=== PATIENT | male | born 1960 | race Caucasian/White ===

== ENCOUNTER 2019-03-03 18:15 | Emergency (ER) | payer OTHER, SELFPAY ==
[2019-03-03 18:19] VITALS: BP 165/85; PULSE 83; RESP 20; TEMP 37.3; O2SAT 98; BMI 24.3
--- NOTE | 2019-03-03 18:25 | DI.RAD.S_ITS ---
PROCEDURE: XR CHEST 2V INDICATIONS: l chest pain TECHNIQUE: 2 views of the chest were acquired. COMPARISON: None. FINDINGS: Surgical changes and devices: Cervical fusion hardware is present. Lungs and pleura: Lungs are clear. No pleural effusions or pneumothorax. Mediastinum: Mediastinal contours are normal. Heart size is normal. Bones and chest wall: No suspicious bony abnormalities. Soft tissues appear unremarkable. IMPRESSION: No acute process. Dictated by: Morales Richter M.D. on 03/03/2019 at 18:47 Approved by: Morales Richter M.D. on 03/03/2019 at 18:48
--- NOTE | 2019-03-03 18:52 | ED.CHESTPAIN ---
HPI - Chest Pain <Maria C Chan PA-C - Last Filed: 03/03/19 22:23> General Chief Complaint: Chest Pain Stated Complaint: pain in left side of chest Time Seen by Provider: 03/03/19 18:51 Source: patient Mode of arrival: ambulatory Limitations: no limitations History of Present Illness HPI narrative: This 58-year-old male comes in due to left-sided chest pain. He states that he has actually had pain for the last 2 and half months, initially started when he was playing with his dogs and ran into a clothes line with the left side of his chest, then about a month ago he actually tripped and fell on his porch same area of his chest. He states his ribs were sore and he had a bump, thought maybe he broke a rib. He states he has had soreness with deep breath since then but not having difficulty breathing or wheeze. He also had some cough and flu symptoms last month that he thinks exacerbated things. That has resolved. Today he states that he had been polishing some tires and noted that he had a little bit more sharp pain. He describes this as waxing and waning about every 6 minutes. He states that when he was driving he noted a sharp pop in that side of his ribs about 20 minutes ago, and so came here. He states that pain is better now. He states he took some [place] and Flexeril earlier for the pain and that seemed to help somewhat. He states he does not have any radiating pain but does have some chronic shoulder pain and popping. He also has a history of spurs and fusion in his neck. He denies feeling lightheaded or nauseated. Denies palpitations. Denies dyspnea as noted above. He denies any pain or swelling in his extremities. he states he does have some chronic thoracic pain which is unchanged. He denies smoking history and any other cardiac risk factors aside from high blood pressure Related Data Allergies Allergy/AdvReac Type Severity Reaction Status Date / Time fexofenadine AdvReac Severe MAKES ME Unverified 02/25/18 11:51 MEAN Review of Systems <Maria C Chan PA-C - Last Filed: 03/03/19 22:23> Review of Systems ROS Unobtainable: All systems reviewed & are unremarkable except as noted in HPI and below PFSH <Maria C Chan PA-C - Last Filed: 03/03/19 22:23> Medical History (Updated 03/03/19 @ 21:06 by Maria C Chan PA-C) Chronic thoracic back pain (Chronic) Generalized anxiety disorder with panic attacks (Chronic) HTN (hypertension) (Chronic) Surgical History (Updated 03/03/19 @ 19:15 by Maria C Chan PA-C) Status post cervical spinal fusion (Resolved) Status post knee surgery (Resolved) Social History (Updated 03/03/19 @ 19:15 by Maria C Chan PA-C) Smoking Status: Never smoker Social History (Updated 03/03/19 @ 19:15 by Maria C Chan PA-C) Smoking Status: Never smoker Exam <Maria C Chan PA-C - Last Filed: 03/03/19 22:23> Narrative Exam Narrative: GENERAL APPEARANCE: Patient sitting comfortably, in no distress. HEENT: PERRL, EOMI, normal oropharynx NECK/THYROID: Neck supple, no JVD. LUNGS: Clear to auscultation bilaterally. CHEST: No tenderness over the sternum, mild rib tenderness and slight deformity over the left mid anterior ribs at the mid clavicular line. He indicates that is the area of tenderness HEART: Regular rate and rhythm without murmur, normal S1, S2, no S3 or S4. ABDOMEN: Soft, NT, ND, + BS x 4 quadrants EXTREMITIES: No edema. No calf tenderness NEUROLOGIC: Alert and oriented, normal speech, and coordination. DERM: No exanthem MS: Full AROM L. shoulder with some crepitus, NT Initial Vital Signs Initial Vital Signs: Vital Signs Temperature 99.2 F 03/03/19 18:19 Pulse Rate 83 03/03/19 18:19 Respiratory Rate 20 03/03/19 18:19 Blood Pressure 165/85 H 03/03/19 18:19 Pulse Oximetry 98 03/03/19 18:19 <Lawrence Steel DO - Last Filed: 03/03/19 23:22> Initial Vital Signs Initial Vital Signs: Vital Signs Temperature 99.2 F 03/03/19 18:19 Pulse Rate 83 03/03/19 18:19 Respiratory Rate 20 03/03/19 18:19 Blood Pressure 165/85 H 03/03/19 18:19 Pulse Oximetry 98 0417/19 18:19 Course <Maria C Chan PA-C - Last Filed: 03/03/19 22:23> Additional Information: Patient pain is most consistent with musculoskeletal pain due to recurrent injury and then repetitive left shoulder and upper extremity motion prior to onset of pain today. No acute findings on lab work imaging studies or EKG. He is feeling markedly improved following Toradol and also a dose of Flexeril, which he takes at home. He already has an appointment with his PCP on Friday for this. He will continue Naprosyn, which he already has at home he, for pain as well as Flexeril as needed in the interim and return if any acutely worsening symptoms Orders Ordered: ED Orders 03/03/19 18:23 EKG-12 Lead Stat 03/03/19 18:25 CXR [XR chest 2V] Stat 03/03/19 19:02 XR ribs RT min 3V w CXR1V Stat XR shoulder LT min 2V Stat 03/03/19 19:28 Complete Blood Count AUTO DIFF Stat Comprehensive Metabolic Panel Stat Troponin & CK Cardiac Panel Stat Discontinued Medications Cyclobenzaprine HCl (Flexeril) 10 mg PO NOW ONE Stop: 03/03/19 20:18 Last Admin: 03/03/19 20:19 Dose: 10 mg Ketorolac Tromethamine (Toradol) 30 mg IV NOW ONE Stop: 03/03/19 20:12 Last Admin: 03/03/19 20:18 Dose: Not Given Ketorolac Tromethamine (Toradol) 60 mg IM NOW ONE Stop: 03/03/19 20:14 Last Admin: 03/03/19 20:17 Dose: 60 mg Vital Signs - 8 hr 03/03/19 18:19 03/03/19 19:30 03/03/19 20:30 Temperature 99.2 F Pulse Rate 83 72 70 Respiratory Rate 20 18 16 Blood Pressure 165/85 H Blood Pressure [Right Arm] 137/74 127/78 Pulse Oximetry 98 98 97 03/03/19 21:00 Temperature Pulse Rate 69 Respiratory Rate 14 Blood Pressure Blood Pressure [Right Arm] 135/76 Pulse Oximetry 97 <Lawrence Steel DO - Last Filed: 03/03/19 23:22> Orders Ordered: ED Orders 03/03/19 18:23 EKG-12 Lead Stat 03/03/19 18:25 CXR [XR chest 2V] Stat 03/03/19 19:02 XR ribs RT min 3V w CXR1V Stat XR shoulder LT min 2V Stat 03/03/19 19:28 Complete Blood Count AUTO DIFF Stat Comprehensive Metabolic Panel Stat Troponin & CK Cardiac Panel Stat Discontinued Medications Cyclobenzaprine HCl (Flexeril) 10 mg PO NOW ONE Stop: 03/03/19 20:18 Last Admin: 03/03/19 20:19 Dose: 10 mg Ketorolac Tromethamine (Toradol) 30 mg IV NOW ONE Stop: 03/03/19 20:12 Last Admin: 03/03/19 20:18 Dose: Not Given Ketorolac Tromethamine (Toradol) 60 mg IM NOW ONE Stop: 03/03/19 20:14 Last Admin: 03/03/19 20:17 Dose: 60 mg Vital Signs - 8 hr 03/03/19 18:19 03/03/19 19:30 03/03/19 20:30 Temperature 99.2 F Pulse Rate 83 72 70 Respiratory Rate 20 18 16 Blood Pressure 165/85 H Blood Pressure [Right Arm] 137/74 127/78 Pulse Oximetry 98 98 97 03/03/19 21:00 Temperature Pulse Rate 69 Respiratory Rate 14 Blood Pressure Blood Pressure [Right Arm] 135/76 Pulse Oximetry 97 MDM - Chest Pain <Maria C Chan PA-C - Last Filed: 03/03/19 22:23> Lab Data Result diagrams: 03/03/19 19:28 03/03/19 19:28 Lab Results 03/03/19 03/03/19 Range/Units 19:28 19:28 WBC 6.5 (4.5-11.0) X10^3/uL RBC 4.61 (4.5-5.9) X10^6/uL Hgb 13.3 L (13.5-17.5) g/dL Hct 40.7 L (41-53) % MCV 88.2 (80-100) fL MCH 28.8 (26-34) PG MCHC 32.6 (30-36) % RDW 14.9 H (11.6-14.8) % Plt Count 267 (150-400) X10^3/uL Neut % (Auto) 59.1 (50-75) % Lymph % (Auto) 31.0 (25-40) % Patrick % (Auto) 7.1 (3-14) % Eos % (Auto) 2.4 (2-4) % Baso % (Auto) 0.4 (0-2) % Neut # (Auto) 3900 (0175-5186) /uL Lymph # (Auto) 2000 (5749-1989) /uL Patrick # (Auto) 500 (0-900) /uL Eos # (Auto) 200 (0-450) /uL Baso # (Auto) 0 (0-100) /uL Sodium 137 (137-145) mmol/L Potassium 3.9 (3.4-5.1) mmol/L Chloride 102 (98-107) mmol/L Carbon Dioxide 26 (22-32) mmol/L BUN 17 (9-20) mg/dL Creatinine 0.70 (0.66-1.25) mg/dL Estimated GFR > 60.0 (>60) mL/min BUN/Creatinine Ratio 24.3 H (6-22) Glucose 95 (70-100) mg/dL Calcium 9.4 (8.4-10.2) mg/dL Total Bilirubin 0.4 (0.2-1.3) mg/dL AST 31 (17-59) IU/L ALT 27 (21-72) IU/L Alkaline Phosphatase 72 (38-126) U/L Total Creatine Kinase 132 (55-170) U/L CK-MB (CK-2) 1.02 (<2.37) ng/mL CK-MB (CK-2) Rel Index 0.8 L (1.5-5.0) % Troponin I < 0.012 (0.01-0.034) ng/mL Total Protein 7.9 (6.3-8.2) g/dL Albumin 4.6 (3.5-5.0) g/dL Globulin 3.3 (1.7-4.1) g/dL Albumin/Globulin Ratio 1.4 (1.0-2.8) Imaging Data shoulder: Radiologist's impression: Obie Sims M [address] [address] XRay Report Signed Patient: Obei Sims PMR#: [id number] : 1960cct:[id number] Age/Sex: 58 / MDate of Service: 03/03/19 Loc: ED Accession Number: [id number] Procedure: XR shoulder LT min 2V Ordering Provider: Maria C Chan P.A-C PROCEDURE: XR SHOULDER LT MIN 2V INDICATIONS: pain, popping, ? old injury TECHNIQUE: 3 views of the shoulder were acquired. COMPARISON: [facility], , SHOULDER MINIMUM 2 VIEW LEFT, 05/06/2013, 12:20. FINDINGS: Bones: No fractures or dislocations. No suspicious bony lesions. Visualized ribs appear intact. Periarticular osteophyte formation at the acromioclavicular joint and glenohumeral joints. Soft tissues: No suspicious soft tissue calcifications. IMPRESSION: Osteoarthritis. No acute fracture. No osseous lesion. If clinical suspicion and/or symptoms persist, further assessment with repeat plainfilms, or advanced imaging (e.g., CT, MRI, or bone scan) may be helpful for further assessment. Dictated by: Morales Richter M.D. on 03/03/2019 at 19:20 Approved by: Morales Richter M.D. on 03/03/2019 at 19:20 Chest x-ray: Radiologist's impression: [place] [address] XRay Report Signed Patient: Obie Sims PMR#: [id number] : 1At:[id number] Age/Sex: 58 / MDate of Service: 03/03/19 Loc: ED Accession Number: [id number] Procedure: XR ribs RT min 3V w CXR1V Ordering Provider: Maria C Chan P.A-C PROCEDURE: XR RIBS RT MIN 3V W CXR 1V INDICATIONS: L. anterior ribs, lateral chest (1 view already done) TECHNIQUE: 3 views of the left ribs were acquired, along with a single view chest. COMPARISON: [facility], , XR CHEST 2V, 03/03/2019, 18:38. FINDINGS: Surgical changes and devices: Cervical fusion hardware. Bones and chest wall: No fractures or dislocations. No suspicious bony lesions. Overlying soft tissues appear unremarkable. Lungs and pleura: No pleural effusions or pneumothorax. Lungs appear clear. Mediastinum: Mediastinal contours appear normal. Heart size is normal. IMPRESSION: No acute process. No acute fracture. No osseous lesion. If clinical suspicion and/or symptoms persist, further assessment with repeat plainfilms, or advanced imaging (e.g., CT or bone scan) may be helpful for further assessment. Dictated by: Morales Richter M.D. on 03/03/2019 at 19:21 Approved by: Morales Richter M.D. on 03/03/2019 at 19:21 ECG Data Attestation: I personally reviewed and interpreted this ECG as follows: (Normal sinus rhythm, rate 80, normal axis, nonspecific ST changes) <Lawrence Steel DO - Last Filed: 03/03/19 23:22> Lab Data Lab Results 03/03/19 03/03/19 Range/Units 19:28 19:28 WBC 6.5 (4.5-11.0) X10^3/uL RBC 4.61 (4.5-5.9) X10^6/uL Hgb 13.3 L (13.5-17.5) g/dL Hct 40.7 L (41-53) % MCV 88.2 (80-100) fL MCH 28.8 (26-34) PG MCHC 32.6 (30-36) % RDW 14.9 H (11.6-14.8) % Plt Count 267 (150-400) X10^3/uL Neut % (Auto) 59.1 (50-75) % Lymph % (Auto) 31.0 (25-40) % Patrick % (Auto) 7.1 (3-14) % Eos % (Auto) 2.4 (2-4) % Baso % (Auto) 0.4 (0-2) % Neut # (Auto) 3900 (2090-9163) /uL Lymph # (Auto) 2000 (8261-7993) /uL Patrick # (Auto) 500 (0-900) /uL Eos # (Auto) 200 (0-450) /uL Baso # (Auto) 0 (0-100) /uL Sodium 137 (137-145) mmol/L Potassium 3.9 (3.4-5.1) mmol/L Chloride 102 (98-107) mmol/L Carbon Dioxide 26 (22-32) mmol/L BUN 17 (9-20) mg/dL Creatinine 0.70 (0.66-1.25) mg/dL Estimated GFR > 60.0 (>60) mL/min BUN/Creatinine Ratio 24.3 H (6-22) Glucose 95 (70-100) mg/dL Calcium 9.4 (8.4-10.2) mg/dL Total Bilirubin 0.4 (0.2-1.3) mg/dL AST 31 (17-59) IU/L ALT 27 (21-72) IU/L Alkaline Phosphatase 72 (38-126) U/L Total Creatine Kinase 132 (55-170) U/L CK-MB (CK-2) 1.02 (<2.37) ng/mL CK-MB (CK-2) Rel Index 0.8 L (1.5-5.0) % Troponin I < 0.012 (0.01-0.034) ng/mL Total Protein 7.9 (6.3-8.2) g/dL Albumin 4.6 (3.5-5.0) g/dL Globulin 3.3 (1.7-4.1) g/dL Albumin/Globulin Ratio 1.4 (1.0-2.8) Discharge Plan Departure Patient Disposition: Home Clinical Impression: Rib pain on left side, Atypical chest pain Discharge Date/Time: 03/03/19 21:11 Interventions: ED Discharge Assessment Last Done: 03/03/19 21:10 Instructions: DI for Atypical Chest Pain, DI for Rib Contusion Activity Restrictions/Additional Instructions: Please take the Aleve you have at home, 2 tablets every 12 hours to help with pain. You can continue your cyclobenzaprine as needed, but remember that can make you sleepy. Please avoid twisting and a lot of upper body work to keep the stress off the rib and shoulder areas. Follow up with your PCP on Friday is you have planned. Please return sooner if you have acutely worsening symptoms as we talked about Referrals: Nathaniel Hinojosa MD [Primary Care Provider] - <Lawrence Steel DO - Last Filed: 03/03/19 23:22> Cosign ED Attending Edwige Attestation: I was available for consultation during this patient's emergency department encounter
--- NOTE | 2019-03-03 19:02 | DI.RAD.S_ITS ---
PROCEDURE: XR RIBS RT MIN 3V W CXR 1V INDICATIONS: L. anterior ribs, lateral chest (1 view already done) TECHNIQUE: 3 views of the left ribs were acquired, along with a single view chest. COMPARISON: [facility], , XR CHEST 2V, 03/03/2019, 18:38. FINDINGS: Surgical changes and devices: Cervical fusion hardware. Bones and chest wall: No fractures or dislocations. No suspicious bony lesions. Overlying soft tissues appear unremarkable. Lungs and pleura: No pleural effusions or pneumothorax. Lungs appear clear. Mediastinum: Mediastinal contours appear normal. Heart size is normal. IMPRESSION: No acute process. No acute fracture. No osseous lesion. If clinical suspicion and/or symptoms persist, further assessment with repeat plainfilms, or advanced imaging (e.g., CT or bone scan) may be helpful for further assessment. Dictated by: Morales Richter M.D. on 03/03/2019 at 19:21 Approved by: Morales Richter M.D. on 03/03/2019 at 19:21
--- NOTE | 2019-03-03 19:02 | DI.RAD.S_ITS ---
PROCEDURE: XR SHOULDER LT MIN 2V INDICATIONS: pain, popping, ? old injury TECHNIQUE: 3 views of the shoulder were acquired. COMPARISON: [facility], , SHOULDER MINIMUM 2 VIEW LEFT, 05/06/2013, 12:20. FINDINGS: Bones: No fractures or dislocations. No suspicious bony lesions. Visualized ribs appear intact. Periarticular osteophyte formation at the acromioclavicular joint and glenohumeral joints. Soft tissues: No suspicious soft tissue calcifications. IMPRESSION: Osteoarthritis. No acute fracture. No osseous lesion. If clinical suspicion and/or symptoms persist, further assessment with repeat plainfilms, or advanced imaging (e.g., CT, MRI, or bone scan) may be helpful for further assessment. Dictated by: Morales Richter M.D. on 03/03/2019 at 19:20 Approved by: Morales Richter M.D. on 03/03/2019 at 19:20
--- NOTE | 2019-03-03 19:18 | ED_ITS ---
HPI - Chest Pain <Maria C Chan PA-C - Last Filed: 03/03/19 22:23> General Chief Complaint: Chest Pain Stated Complaint: pain in left side of chest Time Seen by Provider: 03/03/19 18:51 Source: patient Mode of arrival: ambulatory Limitations: no limitations History of Present Illness HPI narrative: This 58-year-old male comes in due to left-sided chest pain. He states that he has actually had pain for the last 2 and half months, initially started when he was playing with his dogs and ran into a clothes line with the left side of his chest, then about a month ago he actually tripped and fell on his porch same area of his chest. He states his ribs were sore and he had a bump, thought maybe he broke a rib. He states he has had soreness with deep breath since then but not having difficulty breathing or wheeze. He also had some cough and flu symptoms last month that he thinks exacerbated things. That has resolved. Today he states that he had been polishing some tires and noted that he had a little bit more sharp pain. He describes this as waxing and waning about every 6 minutes. He states that when he was driving he noted a sharp pop in that side of his ribs about 20 minutes ago, and so came here. He states that pain is better now. He states he took some [place] and Flexeril earlier for the pain and that seemed to help somewhat. He states he does not have any radiating pain but does have some chronic shoulder pain and popping. He also has a history of spurs and fusion in his neck. He denies feeling lightheaded or nauseated. Denies palpitations. Denies dyspnea as noted above. He denies any pain or swelling in his extremities. he states he does have some chronic thoracic pain which is unchanged. He denies smoking history and any other cardiac risk factors aside from high blood pressure Related Data Allergies Allergy/AdvReac Type Severity Reaction Status Date / Time fexofenadine AdvReac Severe MAKES ME Unverified 02/25/18 11:51 MEAN Review of Systems <Maria C Chan PA-C - Last Filed: 03/03/19 22:23> Review of Systems ROS Unobtainable: All systems reviewed & are unremarkable except as noted in HPI and below PFSH <Maria C Chan PA-C - Last Filed: 03/03/19 22:23> Medical History (Updated 03/03/19 @ 21:06 by Maria C Chan PA-C) Chronic thoracic back pain (Chronic) Generalized anxiety disorder with panic attacks (Chronic) HTN (hypertension) (Chronic) Surgical History (Updated 03/03/19 @ 19:15 by Maria C Chan PA-C) Status post cervical spinal fusion (Resolved) Status post knee surgery (Resolved) Social History (Updated 03/03/19 @ 19:15 by Maria C Chan PA-C) Smoking Status: Never smoker Social History (Updated 03/03/19 @ 19:15 by Maria C Chan PA-C) Smoking Status: Never smoker Exam <Maria C Chan PA-C - Last Filed: 03/03/19 22:23> Narrative Exam Narrative: GENERAL APPEARANCE: Patient sitting comfortably, in no distress. HEENT: PERRL, EOMI, normal oropharynx NECK/THYROID: Neck supple, no JVD. LUNGS: Clear to auscultation bilaterally. CHEST: No tenderness over the sternum, mild rib tenderness and slight deformity over the left mid anterior ribs at the mid clavicular line. He indicates that is the area of tenderness HEART: Regular rate and rhythm without murmur, normal S1, S2, no S3 or S4. ABDOMEN: Soft, NT, ND, + BS x 4 quadrants EXTREMITIES: No edema. No calf tenderness NEUROLOGIC: Alert and oriented, normal speech, and coordination. DERM: No exanthem MS: Full AROM L. shoulder with some crepitus, NT Initial Vital Signs Initial Vital Signs: Vital Signs Temperature 99.2 F 03/03/19 18:19 Pulse Rate 83 03/03/19 18:19 Respiratory Rate 20 03/03/19 18:19 Blood Pressure 165/85 H 03/03/19 18:19 Pulse Oximetry 98 03/03/19 18:19 <Lawrence Steel DO - Last Filed: 03/03/19 23:22> Initial Vital Signs Initial Vital Signs: Vital Signs Temperature 99.2 F 03/03/19 18:19 Pulse Rate 83 03/03/19 18:19 Respiratory Rate 20 03/03/19 18:19 Blood Pressure 165/85 H 03/03/19 18:19 Pulse Oximetry 98 0417/19 18:19 Course <Maria C Chan PA-C - Last Filed: 03/03/19 22:23> Additional Information: Patient pain is most consistent with musculoskeletal pain due to recurrent injury and then repetitive left shoulder and upper extremity motion prior to onset of pain today. No acute findings on lab work imaging studies or EKG. He is feeling markedly improved following Toradol and also a dose of Flexeril, which he takes at home. He already has an appointment with his PCP on Friday for this. He will continue Naprosyn, which he already has at home he, for pain as well as Flexeril as needed in the interim and return if any acutely worsening symptoms Orders Ordered: ED Orders 03/03/19 18:23 EKG-12 Lead Stat 03/03/19 18:25 CXR [XR chest 2V] Stat 03/03/19 19:02 XR ribs RT min 3V w CXR1V Stat XR shoulder LT min 2V Stat 03/03/19 19:28 Complete Blood Count AUTO DIFF Stat Comprehensive Metabolic Panel Stat Troponin & CK Cardiac Panel Stat Discontinued Medications Cyclobenzaprine HCl (Flexeril) 10 mg PO NOW ONE Stop: 03/03/19 20:18 Last Admin: 03/03/19 20:19 Dose: 10 mg Ketorolac Tromethamine (Toradol) 30 mg IV NOW ONE Stop: 03/03/19 20:12 Last Admin: 03/03/19 20:18 Dose: Not Given Ketorolac Tromethamine (Toradol) 60 mg IM NOW ONE Stop: 03/03/19 20:14 Last Admin: 03/03/19 20:17 Dose: 60 mg Vital Signs - 8 hr 03/03/19 18:19 03/03/19 19:30 03/03/19 20:30 Temperature 99.2 F Pulse Rate 83 72 70 Respiratory Rate 20 18 16 Blood Pressure 165/85 H Blood Pressure [Right Arm] 137/74 127/78 Pulse Oximetry 98 98 97 03/03/19 21:00 Temperature Pulse Rate 69 Respiratory Rate 14 Blood Pressure Blood Pressure [Right Arm] 135/76 Pulse Oximetry 97 <Lawrence Steel DO - Last Filed: 03/03/19 23:22> Orders Ordered: ED Orders 03/03/19 18:23 EKG-12 Lead Stat 03/03/19 18:25 CXR [XR chest 2V] Stat 03/03/19 19:02 XR ribs RT min 3V w CXR1V Stat XR shoulder LT min 2V Stat 03/03/19 19:28 Complete Blood Count AUTO DIFF Stat Comprehensive Metabolic Panel Stat Troponin & CK Cardiac Panel Stat Discontinued Medications Cyclobenzaprine HCl (Flexeril) 10 mg PO NOW ONE Stop: 03/03/19 20:18 Last Admin: 03/03/19 20:19 Dose: 10 mg Ketorolac Tromethamine (Toradol) 30 mg IV NOW ONE Stop: 03/03/19 20:12 Last Admin: 03/03/19 20:18 Dose: Not Given Ketorolac Tromethamine (Toradol) 60 mg IM NOW ONE Stop: 03/03/19 20:14 Last Admin: 03/03/19 20:17 Dose: 60 mg Vital Signs - 8 hr 03/03/19 18:19 03/03/19 19:30 03/03/19 20:30 Temperature 99.2 F Pulse Rate 83 72 70 Respiratory Rate 20 18 16 Blood Pressure 165/85 H Blood Pressure [Right Arm] 137/74 127/78 Pulse Oximetry 98 98 97 03/03/19 21:00 Temperature Pulse Rate 69 Respiratory Rate 14 Blood Pressure Blood Pressure [Right Arm] 135/76 Pulse Oximetry 97 MDM - Chest Pain <Maria C Chan PA-C - Last Filed: 03/03/19 22:23> Lab Data Result diagrams: 03/03/19 19:28 03/03/19 19:28 Lab Results 03/03/19 03/03/19 Range/Units 19:28 19:28 WBC 6.5 (4.5-11.0) X10^3/uL RBC 4.61 (4.5-5.9) X10^6/uL Hgb 13.3 L (13.5-17.5) g/dL Hct 40.7 L (41-53) % MCV 88.2 (80-100) fL MCH 28.8 (26-34) PG MCHC 32.6 (30-36) % RDW 14.9 H (11.6-14.8) % Plt Count 267 (150-400) X10^3/uL Neut % (Auto) 59.1 (50-75) % Lymph % (Auto) 31.0 (25-40) % [place] % (Auto) 7.1 (3-14) % Eos % (Auto) 2.4 (2-4) % Baso % (Auto) 0.4 (0-2) % Neut # (Auto) 3900 (7933-6063) /uL Lymph # (Auto) 2000 (6422-7556) /uL [place] # (Auto) 500 (0-900) /uL Eos # (Auto) 200 (0-450) /uL Baso # (Auto) 0 (0-100) /uL Sodium 137 (137-145) mmol/L Potassium 3.9 (3.4-5.1) mmol/L Chloride 102 (98-107) mmol/L Carbon Dioxide 26 (22-32) mmol/L BUN 17 (9-20) mg/dL Creatinine 0.70 (0.66-1.25) mg/dL Estimated GFR > 60.0 (>60) mL/min BUN/Creatinine Ratio 24.3 H (6-22) Glucose 95 (70-100) mg/dL Calcium 9.4 (8.4-10.2) mg/dL Total Bilirubin 0.4 (0.2-1.3) mg/dL AST 31 (17-59) IU/L ALT 27 (21-72) IU/L Alkaline Phosphatase 72 (38-126) U/L Total Creatine Kinase 132 (55-170) U/L CK-MB (CK-2) 1.02 (<2.37) ng/mL CK-MB (CK-2) Rel Index 0.8 L (1.5-5.0) % Troponin I < 0.012 (0.01-0.034) ng/mL Total Protein 7.9 (6.3-8.2) g/dL Albumin 4.6 (3.5-5.0) g/dL Globulin 3.3 (1.7-4.1) g/dL Albumin/Globulin Ratio 1.4 (1.0-2.8) Imaging Data shoulder: Radiologist's impression: Obie Sims M [address] [address] XRay Report Signed Patient: Obie Sims PMR#: [id number] : 1960cct:[id number] Age/Sex: 58 / MDate of Service: 03/03/19 Loc: ED Accession Number: [id number] Procedure: XR shoulder LT min 2V Ordering Provider: Maria C Chan P.A-C PROCEDURE: XR SHOULDER LT MIN 2V INDICATIONS: pain, popping, ? old injury TECHNIQUE: 3 views of the shoulder were acquired. COMPARISON: [facility], SHOULDER MINIMUM 2 VIEW LEFT, 05/06/2013, 12:20. FINDINGS: Bones: No fractures or dislocations. No suspicious bony lesions. Visualized ribs appear intact. Periarticular osteophyte formation at the acromioclavicular joint and glenohumeral joints. Soft tissues: No suspicious soft tissue calcifications. IMPRESSION: Osteoarthritis. No acute fracture. No osseous lesion. If clinical suspicion and/or symptoms persist, further assessment with repeat plainfilms, or advanced imaging (e.g., CT, MRI, or bone scan) may be helpful for further assessment. Dictated by: Morales Richter M.D. on 03/03/2019 at 19:20 Approved by: Morales Richter M.D. on 03/03/2019 at 19:20 Chest x-ray: Radiologist's impression: [place] [address] XRay Report Signed Patient: Obie Sims PMR#: [id number] : 1At:[id number] Age/Sex: 58 / MDate of Service: 03/03/19 Loc: ED Accession Number: [id number] Procedure: XR ribs RT min 3V w CXR1V Ordering Provider: Maria C Chan P.A-C PROCEDURE: XR RIBS RT MIN 3V W CXR 1V INDICATIONS: L. anterior ribs, lateral chest (1 view already done) TECHNIQUE: 3 views of the left ribs were acquired, along with a single view chest. COMPARISON: [facility], , XR CHEST 2V, 03/03/2019, 18:38. FINDINGS: Surgical changes and devices: Cervical fusion hardware. Bones and chest wall: No fractures or dislocations. No suspicious bony lesi ons. Overlying soft tissues appear unremarkable. Lungs and pleura: No pleural effusions or pneumothorax. Lungs appear clear. Mediastinum: Mediastinal contours appear normal. Heart size is normal. IMPRESSION: No acute process. No acute fracture. No osseous lesion. If clinical suspicion and/or symptoms persist, further assessment with repeat plainfilms, or advanced imaging (e.g., CT or bone scan) may be helpful for further assessment. Dictated by: Morales Richter M.D. on 03/03/2019 at 19:21 Approved by: Morales Richter M.D. on 03/03/2019 at 19:21 ECG Data Attestation: I personally reviewed and interpreted this ECG as follows: (Normal sinus rhythm, rate 80, normal axis, nonspecific ST changes) <Lawrence Steel DO - Last Filed: 03/03/19 23:22> Lab Data Lab Results 03/03/19 03/03/19 Range/Units 19:28 19:28 WBC 6.5 (4.5-11.0) X10^3/uL RBC 4.61 (4.5-5.9) X10^6/uL Hgb 13.3 L (13.5-17.5) g/dL Hct 40.7 L (41-53) % MCV 88.2 (80-100) fL MCH 28.8 (26-34) PG MCHC 32.6 (30-36) % RDW 14.9 H (11.6-14.8) % Plt Count 267 (150-400) X10^3/uL Neut % (Auto) 59.1 (50-75) % Lymph % (Auto) 31.0 (25-40) % [place] % (Auto) 7.1 (3-14) % Eos % (Auto) 2.4 (2-4) % Baso % (Auto) 0.4 (0-2) % Neut # (Auto) 3900 (5887-7775) /uL Lymph # (Auto) 2000 (0008-0884) /uL [place] # (Auto) 500 (0-900) /uL Eos # (Auto) 200 (0-450) /uL Baso # (Auto) 0 (0-100) /uL Sodium 137 (137-145) mmol/L Potassium 3.9 (3.4-5.1) mmol/L Chloride 102 (98-107) mmol/L Carbon Dioxide 26 (22-32) mmol/L BUN 17 (9-20) mg/dL Creatinine 0.70 (0.66-1.25) mg/dL Estimated GFR > 60.0 (>60) mL/min BUN/Creatinine Ratio 24.3 H (6-22) Glucose 95 (70-100) mg/dL Calcium 9.4 (8.4-10.2) mg/dL Total Bilirubin 0.4 (0.2-1.3) mg/dL AST 31 (17-59) IU/L ALT 27 (21-72) IU/L Alkaline Phosphatase 72 (38-126) U/L Total Creatine Kinase 132 (55-170) U/L CK-MB (CK-2) 1.02 (<2.37) ng/mL CK-MB (CK-2) Rel Index 0.8 L (1.5-5.0) % Troponin I < 0.012 (0.01-0.034) ng/mL Total Protein 7.9 (6.3-8.2) g/dL Albumin 4.6 (3.5-5.0) g/dL Globulin 3.3 (1.7-4.1) g/dL Albumin/Globulin Ratio 1.4 (1.0-2.8) Discharge Plan Departure Patient Disposition: Home Clinical Impression: Rib pain on left side, Atypical chest pain Discharge Date/Time: 03/03/19 21:11 Interventions: ED Discharge Assessment Last Done: 03/03/19 21:10 Instructions: DI for Atypical Chest Pain, DI for Rib Contusion Activity Restrictions/Additional Instructions: Please take the Aleve you have at home, 2 tablets every 12 hours to help with pain. You can continue your cyclobenzaprine as needed, but remember that can make you sleepy. Please avoid twisting and a lot of upper body work to keep the stress off the rib and shoulder areas. Follow up with your PCP on Friday is you have planned. Please return sooner if you have acutely worsening symptoms as we talked about Referrals: Nathaniel Hinojosa MD [Primary Care Provider] - <Lawrence Steel DO - Last Filed: 03/03/19 23:22> Cosign ED Attending Edwige Attestation: I was available for consultation during this patient's emergency department encounter
[2019-03-03 19:30] VITALS: BP 137/74; PULSE 72; RESP 18; O2SAT 98
[2019-03-03 19:37] LABS: Add Manual Diff / Slide Review NO; Basophils Absolute Auto 0 /uL (0-100); Basophils Percent Auto 0.4 % (0-2); Eosinophils Absolute Auto 200 /uL (0-450); Eosinophils Percent Auto 2.4 % (2-4); Hematocrit 40.7 % (41-53); Hemoglobin 13.3 g/dL (13.5-17.5); Lymphocytes Absolute Auto 2000 /uL (1100-4500); Mean Corpuscular HGB Conc 32.6 % (30-36); Mean Corpuscular Hemoglobin 28.8 PG (26-34); Mean Corpuscular Volume 88.2 fL (80-100); Monocytes Absolute Auto 500 /uL (0-900); Monocytes Percent Auto 7.1 % (3-14); Neutrophils Absolute Auto 3900 /uL (1500-7000); Neutrophils Percent Auto 59.1 % (50-75); Platelet Count 267 X10^3/uL (150-400); Red Blood Cell Count 4.61 X10^6/uL (4.5-5.9); Red Cell Distribution Width 14.9 % (11.6-14.8); White Blood Cell Count 6.5 X10^3/uL (4.5-11.0)
[2019-03-03 19:56] LABS: Alanine Aminotransferase 27 IU/L (21-72); Albumin 4.6 g/dL (3.5-5.0); Albumin Globulin Ratio 1.4 (1.0-2.8); Alkaline Phosphatase 72 U/L (38-126); Aspartate Aminotransferase 31 IU/L (17-59); BUN Creatinine Ratio 24.3 (6-22); Bilirubin Total 0.4 mg/dL (0.2-1.3); Blood Urea Nitrogen 17 mg/dL (9-20); Calcium 9.4 mg/dL (8.4-10.2); Carbon Dioxide 26 mmol/L (22-32); Chloride 102 mmol/L (98-107); Creatine Kinase 132 U/L (55-170); Estimated Glomerular Filt Rate > 60.0 mL/min (>60); Globulin 3.3 g/dL (1.7-4.1); Glucose 95 mg/dL (70-100); HEMOLYSIS 21 (0-50); Potassium 3.9 mmol/L (3.4-5.1); Sodium 137 mmol/L (137-145); Total Protein 7.9 g/dL (6.3-8.2)
[2019-03-03 20:06] LABS: Troponin I < 0.012 ng/mL (0.01-0.034)
[2019-03-03] MEDS: KETOROLAC 60 MG/2 ML VIAL IM (20:17)
[2019-03-03] MEDS: CYCLOBENZAPRINE 10 MG TABLET PO (20:19)
[2019-03-03 20:21] LABS: CKMB % Relative Index 0.8 % (1.5-5.0); Creatine Kinase MB 1.02 ng/mL (<2.37)
[2019-03-03 20:30] VITALS: BP 127/78; PULSE 70; RESP 16; O2SAT 97
[2019-03-03 21:00] VITALS: BP 135/76; PULSE 69; RESP 14; O2SAT 97
== END 2019-03-03 21:11 | disposition home or self-care (01) ==
PROVIDERS: Emergency Provider Internal Medicine; Family Provider Family Medicine; PCP Family Medicine
DX: R07.81 Pleurodynia (principal); R07.89 Other chest pain; M25.512 Pain in left shoulder; W19.XXXA Unspecified fall, initial encounter
CPT/HCPCS: 36415; 36591; 71046; 71101; 73030; 80053; 82550; 82553; 84484; 85025; 93005; 93010; 96372; 99283; 99285; J1885

== ENCOUNTER → 2020-11-28 10:46 | Outpatient (CLI) | payer OTHER, SELFPAY ==
--- NOTE | 2020-11-28 | DI.RAD.S_ITS ---
PROCEDURE: XR LUMBAR SPINE 2-3V INDICATIONS: LUMBAR DISC DISORDER TECHNIQUE: 3 views of the lumbar spine were acquired. COMPARISON: None. FINDINGS: Bones: 5 [id number] vertebrae are present. There is normal bony alignment. No vertebral body compression fractures. No suspicious bony lesions. Soft tissues: Overlying bowel gas pattern is normal. No suspicious soft tissue calcifications. IMPRESSION: Mild degenerative disc disease along the thoracolumbar junction in the low lumbosacral spine. Mild facet osteoarthritis at L4-5 and L5-S1. No compression fracture found. Dictated by: Esau Craven M.D. on 11/28/2020 at 12:13 Approved by: Esau Craven M.D. on 11/28/2020 at 12:13
== END ==
PROVIDERS: Family Provider Family Medicine; Referring Provider Registered Nurse; Visit Provider Registered Nurse
DX: M51.35 Other intervertebral disc degeneration, thoracolumbar region (principal); M47.816 Spondylosis without myelopathy or radiculopathy, lumbar region; M47.817 Spondylosis without myelopathy or radiculopathy, lumbosacral region
CPT/HCPCS: 72100

== ENCOUNTER → 2024-02-27 11:22 | Outpatient (CLI) | payer OTHER, SELFPAY ==
[2024-02-27 12:03] LABS: Add Manual Diff / Slide Review NO; Basophils Absolute Auto 0 /uL (0-100); Basophils Percent Auto 0.4 % (0-2); Eosinophils Absolute Auto 100 /uL (0-450); Eosinophils Percent Auto 1.8 % (2-4); Hematocrit 39.2 % (41-53); Hemoglobin 13.2 g/dL (13.5-17.5); Lymphocytes Absolute Auto 1400 /uL (1100-4500); Lymphocytes Percent Auto 28.6 % (25-40); Mean Corpuscular HGB Conc 33.6 % (30-36); Mean Corpuscular Hemoglobin 30.6 PG (26-34); Monocytes Absolute Auto 400 /uL (0-900); Monocytes Percent Auto 7.3 % (3-14); Neutrophils Absolute Auto 3100 /uL (1500-7000); Neutrophils Percent Auto 61.9 % (50-75); Platelet Count 281 X10^3/uL (150-400); Red Blood Cell Count 4.31 X10^6/uL (4.5-5.9); Red Cell Distribution Width 14.1 % (11.6-14.8); White Blood Cell Count 5.1 X10^3/uL (4.5-11.0)
[2024-02-27 12:24] LABS: Hemoglobin A1C% w Est Avg Glu 5.4 % (4.0-6.0)
[2024-02-27 12:28] LABS: Albumin 3.9 g/dL (3.5-5.0); BUN Creatinine Ratio 20.7 (6-22); Blood Urea Nitrogen 18 mg/dL (9-20); Calcium 9.4 mg/dL (8.4-10.2); Carbon Dioxide 31 mmol/L (22-32); Chloride 106 mmol/L (98-107); Estimated Glomerular Filt Rate > 60 mL/min (>60); Glucose 100 mg/dL (80-110); HEMOLYSIS < 15 (0-50); Potassium 4.2 mmol/L (3.4-5.1); Sodium 140 mmol/L (137-145)
[2024-02-27 12:35] LABS: Prealbumin 30.7 mg/dL (17.6-36.0)
== END ==
LOC: LAB 11:25
PROVIDERS: Family Provider Family Medicine; Referring Provider Orthopaedic Surgery Adult Reconstructive Orthopaedic Surgery; Visit Provider Orthopaedic Surgery Adult Reconstructive Orthopaedic Surgery
DX: Z01.818 Encounter for other preprocedural examination (principal); R73.9 Hyperglycemia, unspecified; R77.0 Abnormality of albumin; Z01.812 Encounter for preprocedural laboratory examination; E55.0 Rickets, active; E55.9 Vitamin D deficiency, unspecified
CPT/HCPCS: 36415; 80048; 82040; 82306; 83036; 84134; 85025; 93005; 93010

== ENCOUNTER → 2024-06-27 10:43 | Outpatient (CLI) | payer OTHER, SELFPAY ==
--- NOTE | 2024-06-27 | DI.CT.S_ITS ---
PROCEDURE: CT KNEE RIGHT WITHOUT CON INDICATIONS: STATUS POST RIGHT KNEE REPLACEMENT TECHNIQUE: Noncontrast 1-1.5 mm axial sections acquired from the mid-patella to the proximal tibia, with coronal and sagittal reformats. [facility], [place], XR KNEE 4+ VIEWS RIGHT, 06/25/2024, 14:41. FINDINGS: Image quality: Excellent. Bones: Status post right knee arthroplasty, in near anatomic alignment. No hardware complication. Small ossification about the distal quadriceps tendon, representing prior injury. Soft tissues: Large knee effusion. The quadriceps tendon is grossly intact. IMPRESSION: Status post right knee arthroplasty, in near anatomic alignment, no hardware complication. Large knee effusion. Dictated by: Bernice Hernandes M.D. on 06/28/2024 at 17:36 Approved by: Bernice Hernandes M.D. on 06/28/2024 at 17:42
== END ==
LOC: CT 10:44
PROVIDERS: Family Provider Family Medicine; Referring Provider Physician Assistant; Visit Provider Physician Assistant
DX: M25.461 Effusion, right knee (principal); Z96.651 Presence of right artificial knee joint
CPT/HCPCS: 73700